=== PATIENT | male | born 1995 | race Hispanic/Latino ===

== ENCOUNTER 2024-08-21 16:13 | Emergency (ER) | payer SELFPAY ==
[2024-08-21 16:15] VITALS: BP 100/68; PULSE 72; RESP 16; TEMP 36.8; O2SAT 97; BMI 20.2
--- NOTE | 2024-08-21 17:16 | EDS_ITS ---
HPI History of Present Illness Chief Complaint: Eye Problem Detail of Chief Complaint: Swelling of the left upper eyelid and this morning left lower eyelid Informant: patient and other (Significant other helped with interpretation) Onset/Context/Timing Location: Left Eye Onset: Weeks (This episode started 2 weeks ago. Prior episode 2 months ago) Context: Gradual Onset Timing: Continuous Current Severity: Moderate Maximum Severity: Moderate Worsened by: Nothing Relieved by: Nothing Associated Symptoms Associated Symptoms - Eyes: Eyelid swelling; Negative for Burning, Crusting, Drainage, Foreign body sensation, Itching, Matting, Pain, Photophobia or Redness History of injury: No Visual correction: None Narrative Narrative: Patient is a 28-year-old male. He presents because of swelling of his upper eyelid. He states he has been placing warm compresses. He is also putting eye lubricant in his eye. He has no history of trauma. There is no history of fever, chills night sweats. There is no matting of his eyelashes or drainage from his eye. He has not had any ill exposures. Prior similar symptoms: Yes Recent Illness/Hospitalization: No [facility] Medical History Eye problem Allergy/AdvReac Type Severity Reaction Status Date / Time No Known Allergies Allergy Verified 08/21/24 16:18 Social History (Updated 08/21/24 @ 17:[address] Lobo Bryant MD) household members: significant other ROS ROS ED Constitutional Constitutional ED: Denies chills, fever(s), subjective or sweats Eyes Eyes: Reports other Details: Detailed HPI narrative ; Denies blurry vision, change in vision or diplopia ENT ENT ED: Denies ear pain, rhinorrhea or sore throat Integumentary Denies rash Neurologic Neurologic: Denies headache(s) EXAM Physical Exam Const Vital Signs: 08/21/24 16:15 Temperature 98.3 F Temperature Source Oral Pulse Rate 72 Respiratory Rate 16 Blood Pressure 100/68 Blood Pressure Mean 78 Pulse Ox 97 Oxygen Delivery Method Room Air Positive well nourished and well developed General Appearance ED: well developed HEENT HEENT Narrative: Head is normocephalic. atraumatic; Negative for tenderness Nose: external nose normal Eyes Eyes Narrative: Pupils equal round reactive to light and accommodation. Extraocular muscles are intact. Sclera is not injected. Conjunctive is not injected. There is no abnormality of the lashes. There is no preauricular lymphadenopathy. There is swelling of the upper eyelid. Findings are consistent with hordeolum. There is slight erythema and warmth of the upper eyelid near the lash margin. Neck no lymphadenopathy, supple and no JVD Resp normal respiratory effort Cardio regular rate and regular rhythm Neuro oriented x3 and CN's II-XII intact bilaterally Sensorium / Orientation: alert Psych Psych Narrative: Normal Skin Skin Narrative: Described under the eye portion of the EMR otherwise negative MDM MDM MDM Narrative Medical decision making narrative: Patient has a hordeolum. There is no obvious area that is pointing. Since it has been going on for 2 weeks will refer to ophthalmology. He may need to have this injected or lanced. Recommended warm compresses 6-10 times a day. Since her is no inflammation of the conjunctivo and there is no drainage antibiotic drops were not ordered. Discharge Plan Triage Chief Complaint: Eye Problem ED Provider: Lobo Bryant Dx/Rx/DC Orders Clinical Impression: Hordeolum internum left upper eyelid Primary Care Provider: Care Physician,No Primary Referrals: Trent Rodriguez MD [Med Staff - Active Staff] - 3-5 Days Care Physician,No Primary [Primary Care Provider] - Activity Restrictions/Additional Instructions: Warm compresses 6-10 times a [address]. Call Dr. Trent Rodriguez's office for follow-up appointment Print Language: Albanian Disposition Disposition: Home, Self Care
[2024-08-21 17:27] VITALS: BP 100/68; PULSE 72; RESP 16; TEMP 36.8; O2SAT 97
== END 2024-08-21 17:29 | disposition home or self-care (01) ==
PROVIDERS: Emergency Provider Emergency Medicine; Referring Provider Emergency Medicine; Visit Provider Emergency Medicine
DX: H00.024 Hordeolum internum left upper eyelid (principal)
CPT/HCPCS: 99282